=== PATIENT | female | born 1955 | race Caucasian/White ===

== ENCOUNTER 2020-11-24 01:20 | Emergency (ER) | payer MEDICARE, BC ==
[2020-11-24] MEDS ORDERED: Acetaminophen/HYDROcodone 325-10 MG Tab PO ONE (01:53)
--- NOTE | 2020-11-24 02:53 | EDM.PDOC ---
ED HPI GENERAL MEDICAL PROBLEM - General Chief Complaint: General Stated Complaint: Left rib pain, fall Time Seen by Provider: 11/24/20 01:25 Source of Information: Reports: Patient History Limitations: Reports: No Limitations - History of Present Illness INITIAL COMMENTS - FREE TEXT/NARRATIVE: Pt. presents to ER with complaints of L sided anterior chest pain. Pt. states that she fell tonight at approx. 2100, with her L chest contacting some uneven concrete. She denies any injury elsewhere. She did not strike her head. No neck pain. Denies any pelvic/lower extremity pain. Pt. states that she has increased discomfort with deep breathing. She was able to ambulate out to the ambulance. Onset: Today Onset Date: 11/24/20 Location: Reports: Chest Severity: Severe right lower rib Pain Score (Numeric/FACES): 6 - Related Data Allergies Allergy/AdvReac Type Severity Reaction Status Date / Time codeine Allergy Nausea and Verified 11/24/20 01:51 Vomiting Home Meds: Home Meds Hydrocodone/Acetaminophen [HYDROcodone-Acetaminophen 5-325 MG] 1 tab PO Q6H PRN 11/24/20 [History] Past Medical History Cardiovascular History: Reports: Hypertension Musculoskeletal History: Reports: Arthritis Social & Family History - Tobacco Use Tobacco Use Status *Q: Unknown Ever Used Tobacco ED ROS GENERAL - Review of Systems Review Of Systems: See Below Constitutional: Reports: No Symptoms HEENT: Reports: No Symptoms Respiratory: Reports: Pleuritic Chest Pain Cardiovascular: Reports: No Symptoms Endocrine: Reports: No Symptoms GI/Abdominal: Reports: No Symptoms : Reports: No Symptoms Musculoskeletal: Reports: No Symptoms Skin: Reports: No Symptoms Neurological: Reports: No Symptoms Psychiatric: Reports: No Symptoms Hematologic/Lymphatic: Reports: No Symptoms Immunologic: Reports: No Symptoms ED EXAM, GENERAL - Physical Exam Exam: See Below Exam Limited By: No Limitations General Appearance: Alert, WD/WN, No Apparent Distress Nose: Normal Inspection, Normal Mucosa, No Blood Head: Atraumatic, Normocephalic Neck: Normal Inspection, Supple, Non-Tender, Full Range of Motion Respiratory/Chest: No Respiratory Distress, Lungs Clear, Splinting (L anteriolateral chest/breast pain. No deformity noted. 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 No increased discomfort/deformity to R shoulder. ROM is at baseline for patient.) Neurological: Alert, Oriented, CN II-XII Intact, Normal Cognition, Normal Gait, Normal Reflexes, No Motor/Sensory Deficits Psychiatric: Normal Affect Skin Exam: Warm, Dry, Intact, Normal Color, No Rash Lymphatic: No Adenopathy Course - Vital Signs Last Recorded V/S: Last Vital Signs Temp 36.6 C 11/24/20 01:20 Pulse 73 11/24/20 01:20 Resp 16 11/24/20 01:20 BP 115/80 11/24/20 01:20 Pulse Ox 95 11/24/20 01:20 - Orders/Labs/Meds Orders: Active Orders 24 hr Category Date Time Status Chest 2V [CR] Stat Exams 11/24/20 01:51 Taken Meds: Medications Discontinued Medications Generic Name Dose Route Start Last Admin Trade Name Freq PRN Reason Stop Dose Admin Hydrocodone Bitart/Acetaminophen 1 tab 11/24/20 01:53 11/24/20 02:06 Acetaminophen/Hydrocodone 325-10 Mg Tab PO 11/24/20 01:54 1 tab ONETIME ONE Administration - Radiology Interpretation Free Text/Narrative:: Chest radiographs obtained. No fractures to ribs. Radiologist questions dislocation of R shoulder. On exam, it appears to be in place and not dislocated. Appearance likely secondary to severe OA/osteopenia. Departure - Departure Time of Disposition: 02:56 Disposition: Home, Self-Care 01 Clinical Impression: Chest wall contusion - Discharge Information Instructions: Chest Wall Pain, [id number] Referrals: PCP,None [Primary Care Provider] - Forms: ED Department Discharge Additional Instructions: Home to rest. Harrington 5/325mg 1-2 tabs every 4-6 hours as needed for pain. Work on taking deep breaths. Follow-up in clinic in 10-14 days, sooner if not gradually improving. Sepsis Event Note (ED) - Focused Exam Vital Signs: Vital Signs Temp Pulse Resp BP Pulse Ox 11/24/20 01:20 36.6 C 73 16 115/80 95 - Problem List Review Problem List Initiated/Reviewed/Updated: Yes - My Orders Last 24 Hours: My Active Orders 11/24/20 01:51 Chest 2V [CR] Stat - Assessment/Plan Last 24 Hours: My Active Orders 11/24/20 01:51 Chest 2V [CR] Stat Plan: Home to rest. Harrington 5/325mg 1-2 tabs every 4-6 hours as needed for pain. Work on taking deep breaths. Follow-up in clinic in 10-14 days, sooner if not gradually improving.
--- NOTE | 2020-11-24 14:17 | CR ---
[id number] RAD/RAD Chest PA And Lateral EXAM: FRONTAL AND LATERAL CHEST INDICATION: FALL, L ANTEROLATERAL CHEST PAIN. COMPARISON: None. DISCUSSION: The heart and lungs are normal in appearance. Partially imaged left shoulder arthroplasty. IMPRESSION: 1. Negative exam. Eric Ferraro MD 11/24/20 [id number] Thank you for allowing us to participate in the care of your patient.
== END 2020-11-24 03:10 | disposition home or self-care (01) ==
LOC: VM.ED 01:20
DX: S20.212A Contusion of left front wall of thorax, initial encounter (principal); I10 Essential (primary) hypertension; Z88.5 Allergy status to narcotic agent; W19.XXXA Unspecified fall, initial encounter
CPT/HCPCS: 71046; 99284; 99284-25; A9270-GY